=== PATIENT | female | born 1960 | race African-American/Black ===

== ENCOUNTER 2021-12-16 14:39 | Emergency (ER) | payer BC ==
[~2021-12-16] VITALS: Ht 157.5 cm; Wt 96.6 kg
--- NOTE | 2021-12-16 15:41 | PHYS DOC ---
Past Medical History Past Surgical History: Cholecystectomy (RENEE GOFF APRN) Smoking Status: Never Smoker Alcohol Use: None (RENEE GOFF APRN) General Adult EDM: Chief Complaint: UPPER EXTREMITY PAIN HPI: HPI: Patient is a 61-year-old female who presents to the emergency department for a lump to her left axilla region that she noticed yesterday when she was showering and washing her armpits. Patient states that she has pain with movement and with palpation of that region. She denies any injuries but reports that she does lots of heavy lifting she is a housekeeper and laundry assistant. Patient reports that today she was running a vacuum on her back and the strap of the vacuum was hitting that area and she was having pain to it. She rates her pain 5 out of 10. No treatment prior to arrival. She does report that the pain and swelling has decreased from yesterday. Patient denies any cough, shortness of breath, unexpected weight loss, fatigue, night sweats. She reports that she had a mammogram 8 to 9 months ago that was unremarkable. (RENEE GOFF APRN) Review of Systems: Review of Systems: Constitutional: negative unless reported in HPI Eyes: negative unless reported in HPI HENT: negative unless reported in HPI Respiratory: negative unless reported in HPI Cardiovascular: negative unless reported in HPI GI: negative unless reported in HPI : negative unless reported in HPI Musculoskeletal: negative unless reported in HPI Integument: negative unless reported in HPI Neurologic: negative unless reported in HPI Endocrine: negative unless reported in HPI Lymphatic: negative unless reported in HPI Psychiatric: negative unless reported in HPI (RENEE GOFF APRN) Heart Score: C/O Chest Pain: N/A Risk Factors: Risk Factors: DM, Current or recent (<one month) smoker, HTN, HLP, family history of CAD, obesity. Risk Scores: Score 0 - 3: 2.5% MACE over next 6 weeks - Discharge Home Score 4 - 6: 20.3% MACE over next 6 weeks - Admit for Clinical Observation Score 7 - 10: 72.7% MACE over next 6 weeks - Early Invasive Strategies (RENEE GOFF APRN) Allergies: Allergies: Allergies Coded Allergies Type Severity Reaction Last Updated Verified No Known Drug Allergies 12/16/21 No (RENEE GOFF APRN) Physical Exam: PE: Constitutional: Well developed, well nourished, no acute distress, non-toxic appearance. [] HENT: Normocephalic, atraumatic, bilateral external ears normal, oropharynx moist, no oral exudates, nose normal. [] Eyes: PERRL, EOMI, conjunctiva normal, no discharge. [] Neck: Normal range of motion, no stridor Cardiovascular:Heart rate regular rhythm, no murmur [] Lungs & Thorax: Bilateral breath sounds clear to auscultation, linear rope like mass noted to left axilla approximately 3 centimeters in length, there are no other masses palpated in this region and there is no redness or warmth surrounding mass [] Abdomen: Bowel sounds normal, soft, no tenderness, no masses, no pulsatile masses. [] Skin: Warm, dry, no erythema, no rash. [] Back: Full range of motion Extremities: No tenderness, no cyanosis, no clubbing, ROM intact, no edema. [] Neurologic: Alert and oriented X 3, normal motor function, normal sensory function, no focal deficits noted. [] Psychologic: Affect normal, judgement normal, mood normal. [] (RENEE GOFF APRN) Current Patient Data: Vital Signs: Vital Signs Date Time Temp Pulse Resp B/P (MAP) Pulse Ox O2 Delivery O2 Flow Rate FiO2 12/16/21 14:42 97.8 107 22 170/90 (116) 98 Room Air 97.8 (RENEE GOFF APRN) EKG: EKG: [] (RENEE GOFF APRN) Radiology/Procedures: Radiology/Procedures: []PROCEDURE: CHEST PA & LATERAL PA and lateral views of the chest. Comparison: None. Indication: Left chest mass Findings: The heart size is normal. No pneumothorax or effusion. No air space or interstitial disease. The bony structures are intact. Impression: 1. No acute cardiopulmonary process. Electronically signed by: Dayna Cheatham MD (12/16/2021 3:39 PM) [facility] DICTATED and SIGNED BY: DAYNA CHEATHAM MD DATE: 12/16/21 [id number] (RENEE GOFF APRN) Course & Med Decision Making: Course & Med Decision Making Pertinent Labs and Imaging studies reviewed. (See chart for details) Patient presents to the emergency department for a painful mass to her left axilla that she noticed yesterday. Patient denies any injuries. She reports the pain is worse with movement. Patient does do heavy lifting with her job. X-ray performed of patient's chest. Is possible that these are enlarged lymph nodes versus inflammation of the muscle. X-ray shows no acute findings. Patient advised to take anti-inflammatory medications. Patient advised to follow-up with her primary care provider if her symptoms continue. I discussed with patient all findings and diagnostic testing as well as the need to follow- up with PCP for further evaluation and treatment or return to the ER if any new or worsening symptoms. Strict return precautions were also discussed at length. Patient voiced understanding and agreement with the plan. Patient is hemody namically stable at the time of disposition. (RENEE GOFF APRN) Course & Med Decision Making Evaluated patient with my [employer]IC. Patient with no constitutional B signs including no fever, weight loss or night sweats. Exam consistent with tender lymphadenopathy versus musculoskeletal strain with lifting. Patient aware of symptoms do not resolve she will need more detailed follow-up with primary care physician regarding lymphoma vs lad. Pt reported normal pap 8-9 months ago. (ERICH SHARMA DO) Dragon Disclaimer: Dragon Disclaimer: This electronic medical record was generated, in whole or in part, using a voice recognition dictation system. (RENEE GOFF APRN) Departure Departure Impression: Primary Impression: Chest wall pain Disposition: 01 HOME / SELF CARE / HOMELESS Condition: GOOD Referrals: NO PCP (PCP) Patient Instructions: Chest Wall Pain Additional Instructions: You were seen in the emergency department for an area of swelling to your left chest. A chest x-ray was performed that showed no acute findings. It is possible that this is an enlarged lymph node versus musculoskeletal in nature. You can take anti-inflammatory medications like Tylenol and/or ibuprofen for pain. You can also apply heat. Follow-up with your primary care provider tomorrow regarding your ER visit. I would monitor this area for any changes in size or pain and if it gets worse you need to follow-up sooner than later with your primary care provider. Return to the emergency department if you develop worsening of your pain, shortness of breath, high fevers refractory to treatment, unexpected weight loss, night sweats, any new or worsening concerns. RENEE GOFF APRN Dec 16, 2021 15:41 ERICH SHARMA DO Dec 16, 2021 16:02
--- NOTE | 2021-12-16 15:42 | RAD ---
PA and lateral views of the chest. Comparison: None. Indication: Left chest mass Findings: The heart size is normal. No pneumothorax or effusion. No air space or interstitial disease. The bon y structures are intact. Impression: 1. No acute cardiopulmonary process. Electronically signed by: Esvin Davidson MD (12/16/2021 3:39 PM) [facility]
[2021-12-16 15:56] VITALS: BP 149/79
== END 2021-12-16 16:01 | disposition home or self-care (01) ==
LOC: ER 14:39
DX: R07.89 Other chest pain (principal)
CPT/HCPCS: 71046; 99283